=== PATIENT | male | born 1980 | race African-American/Black ===

== ENCOUNTER 2018-07-08 08:54 | Emergency (ER) | payer MEDICAID ==
[~2018-07-08] VITALS: Ht 177.8 cm; Wt 80.0 kg
[2018-07-08] MEDS ORDERED: METR45CR2 TP (09:03)
[2018-07-08] MEDS ORDERED: BACITRACIN ZINC OINT UDPKT TOP ONE (09:45)
[2018-07-08] MEDS ORDERED: ACETAMINOPHEN WITH CODEINE 300/30MG TABLET PO ONE (09:45)
[2018-07-08] MEDS ORDERED: TETANUS, DIPHTHERIA, PERTUSSIS VAC/PF 0.5ML (>7YR OLD) IM ONE (09:45)
[2018-07-08] MEDS ORDERED: LIDOCAINE HCL/PF 1% 10 MG/ML 5ML VIAL IJ ONE (09:45)
[2018-07-08 10:03] VITALS: BP 121/79
[2018-07-08 11:15] LABS: BASOPHILS % 0.4 % (0.0-2.0); EOSINOPHILS % 0.5 % (0.0-5.0); HEMOGLOBIN. 14.2 g/dL (14.0-18.0); LYMPHOCYTES % 20.2 % (20.0-50.0); MEAN CORPUSCULAR HEMOGLOBIN 29.3 pg (28.0-32.0); MEAN CORPUSCULAR VOLUME 88.9 fL (80.0-94.0); MONOCYTES % 10.6 % (2.0-8.0); NEUTROPHILS % 68.3 % (40.0-76.0); PLATELET 277 x1000/uL (130-400); RED BLOOD CELL COUNT 4.84 mill/uL (4.7-6.1); RED CELL DISTRIBUTION WIDTH 14.2 % (11.6-14.6)
== END 2018-07-08 12:16 | disposition home or self-care (01) ==
LOC: ER 09:05
DX: S01.81XA Laceration without foreign body of other part of head, initial encounter (principal); I10 Essential (primary) hypertension; X58.XXXA Exposure to other specified factors, initial encounter; Y93.89 Activity, other specified; Y92.89 Other specified places as the place of occurrence of the external cause; Y99.8 Other external cause status
CPT/HCPCS: 12001; 36415; 70450; 85025; 99284; J3490; Z7610

== ENCOUNTER 2018-07-08 12:12 | Emergency (ER) | payer MEDICAID ==
[~2018-07-08 12:12] MED LIST: METR45CR2 TP
[2018-07-08 15:17] VITALS: BP 122/78
== END 2018-07-08 15:19 | disposition home or self-care (01) ==
LOC: ER 12:12
DX: R01.1 Cardiac murmur, unspecified (principal)
CPT/HCPCS: 93005; 99283

== ENCOUNTER 2018-07-08 16:28 | Emergency (ER) | payer MEDICAID ==
[~2018-07-08] VITALS: Ht 177.8 cm; Wt 78.0 kg
[2018-07-08 16:35] VITALS: BP 124/67
== END 2018-07-08 20:53 | disposition left against medical advice (07) ==
LOC: ER 16:28
DX: Z53.21 Procedure and treatment not carried out due to patient leaving prior to being seen by health care provider (principal)